=== PATIENT | male | born 1965 | race Caucasian/White ===

== ENCOUNTER 2022-01-18 15:41 | Emergency (ER) | payer OTHER ==
[2022-01-18 15:50] VITALS: BP 166/82; PULSE 60; TEMP 98; BMI 29.1
[2022-01-18] MEDS ORDERED: LIDOCAINE 5% TOPICAL PATCH TP ONE ×2 (16:22→16:24)
[2022-01-18] MEDS ORDERED: CYCLOBENZAPRINE HCL 10 MG TABLET (FP) PO ONE (16:22)
[2022-01-18] MEDS ORDERED: KETOROLAC TROMETHAMINE 30 MG/1 ML VIAL IM ONE (16:22)
[2022-01-18] MEDS ORDERED: LIDOCAINE 5% TOPICAL PATCH ONE (16:26)
[2022-01-18] MEDS ORDERED: CYCLOBENZAPRINE HCL 10 MG TABLET (FP) ONE (16:26)
[2022-01-18] MEDS ORDERED: KETOROLAC TROMETHAMINE 30 MG/1 ML VIAL ONE (16:26)
[2022-01-18] MEDS ORDERED: LIDOCAINE PATCH REMOVAL MC SCH ×2 (22:00)
== END 2022-01-18 18:09 | disposition home or self-care (01) ==
LOC: JERFT 15:41
PROC: 3E0233Z Introduction of Anti-inflammatory into Muscle, Percutaneous Approach (ICD-10-PCS; principal; 2022-01-18)
DX: M54.50 Low back pain, unspecified (principal)
CPT/HCPCS: 99284-25

== ENCOUNTER 2022-01-21 16:45 | Emergency (ER) | payer OTHER ==
[2022-01-21 16:54] VITALS: BP 111/72; PULSE 58; TEMP 97.9; BMI 28.3
[2022-01-21] MEDS ORDERED: KETOROLAC TROMETHAMINE 30 MG/1 ML VIAL IM ONE (19:17)
[2022-01-21] MEDS ORDERED: diazePAM 5 MG TABLET PO ONE (19:17)
[2022-01-21] MEDS ORDERED: LIDOCAINE 5% TOPICAL PATCH TP ONE (19:17)
[2022-01-21] MEDS ORDERED: LIDOCAINE 5% TOPICAL PATCH ONE (19:39)
[2022-01-21] MEDS ORDERED: diazePAM 5 MG TABLET ONE (19:40)
[2022-01-21] MEDS ORDERED: KETOROLAC TROMETHAMINE 30 MG/1 ML VIAL ONE (19:40)
[2022-01-21 20:30] LABS: PH,URINE 5.5 (5.0-8.0); URINE APPEARANCE CLEAR; URINE BILIRUBIN NEGATIVE (NEGATIVE); URINE COLOR YELLOW; URINE GLUCOSE (UA) TRACE (NEGATIVE); URINE KETONE NEGATIVE (NEGATIVE); URINE LEUK ESTERASE NEGATIVE (NEGATIVE); URINE NITRITE NEGATIVE (NEGATIVE); URINE PROTEIN NEGATIVE (NEGATIVE); URINE UROBILINOGEN 0.2 mg/dL (0.2-1.0)
[2022-01-21] MEDS ORDERED: LIDOCAINE PATCH REMOVAL MC SCH (22:00)
== END 2022-01-21 21:11 | disposition home or self-care (01) ==
LOC: JERFT 16:45
PROC: 3E023GC Introduction of Other Therapeutic Substance into Muscle, Percutaneous Approach (ICD-10-PCS; principal; 2022-01-21)
DX: M54.50 Low back pain, unspecified (principal)
CPT/HCPCS: 72100-TC-FY; 81003; 87086; 99284-25

== ENCOUNTER 2022-03-24 04:27 | Inpatient (IN) | payer OTHER ==
[2022-03-24] MEDS ORDERED: DIPHTH,PERTUSS(ACELL),TET 0.5 ML DISP.SYRIN IM ONE ×2 (04:51→04:55)
[2022-03-24] MEDS ORDERED: ACETAMINOPHEN 325 MG TABLET (FP) PO ONE (04:52)
[2022-03-24] MEDS ORDERED: ACETAMINOPHEN 325 MG TABLET (FP) ONE (04:55)
[2022-03-24] MEDS ORDERED: DEXAMETHASONE SOD PHOSPHATE 10 MG/1 ML VIAL ONE (05:29)
[2022-03-24 09:51] LABS: BASO % 0.2 % (0-2.0); EOS % 0.1 % (0-4.5); HEMATOCRIT 42.2 % (35.4-49); HEMOGLOBIN 14.6 GM/dL (11.7-16.9); MCH 32.6 pg (25.7-33.7); MCHC 34.5 g/dl (32.0-35.9); MEAN CELL VOLUME 94.5 fl (80-96); MEAN PLT VOLUME 10.6 fl (7.5-11.1); MONO % 6.6 % (3.8-10.2); NEUT % 79.1 % (42.8-82.8); PLATELET COUNT 173 10^3/uL (134-434); RBC 4.47 M/mm3 (4.00-5.60); RDW 13.5 % (11.9-15.9); WHITE BLOOD COUNT 9.1 K/mm3 (4.0-10.0)
[2022-03-24 10:06] LABS: ALBUMIN 4.1 g/dl (3.4-5.0); BLOOD UREA NITROGEN 13.5 mg/dL (7-18); CALCIUM 8.7 mg/dL (8.5-10.1)
[2022-03-24 10:10] LABS: ACTIVATED PTT 37.2 SECONDS (25.2-36.5); CREATININE 0.7 mg/dL (0.55-1.3); INR 0.99 (0.83-1.09); PROTHROMBIN TIME (PATIENT) 11.4 SEC (9.7-13.0)
[2022-03-24 10:11] LABS: BILIRUBIN,TOTAL 0.3 mg/dL (0.2-1); TOT PROT 7.3 g/dl (6.4-8.2)
[2022-03-24] MEDS ORDERED: ACETAMINOPHEN 1000 MG/100 ML BAG IVPB ONE (11:31)
[2022-03-24] MEDS ORDERED: ACETAMINOPHEN INJECTION 100 ML IVPB ONE (11:33)
[2022-03-24 16:38] VITALS: BMI 30.3
[2022-03-24] MEDS ORDERED: ONDANSETRON 4 MG/2 ML VIAL IVPUSH PRN (16:52)
[2022-03-24] MEDS: morphine SULFATE 4 MG/ML VIAL IVPUSH PRN (17:50)
[2022-03-25 09:08] LABS: HEMATOCRIT 39.4 % (35.4-49); HEMOGLOBIN 13.3 GM/dL (11.7-16.9); MCH 32.1 pg (25.7-33.7); MCHC 33.8 g/dl (32.0-35.9); MEAN CELL VOLUME 94.8 fl (80-96); PLATELET COUNT 158 10^3/uL (134-434); RBC 4.15 M/mm3 (4.00-5.60); RDW 13.4 % (11.9-15.9); WHITE BLOOD COUNT 6.4 K/mm3 (4.0-10.0)
[2022-03-25] MEDS: morphine SULFATE 4 MG/ML VIAL IVPUSH PRN ×2 (09:19→15:09)
[2022-03-25 09:31] LABS: CALCIUM 8.6 mg/dL (8.5-10.1)
[2022-03-25 09:34] LABS: CREATININE 0.7 mg/dL (0.55-1.3)
[2022-03-25] MEDS ORDERED: ENOXAPARIN NA (PORCINE) 40 MG/0.4 ML DISP.SYRIN SQ SCH (10:00)
[2022-03-25] MEDS ORDERED: ACETAMINOPHEN 325 MG TABLET (FP) PO PRN (14:35)
[2022-03-26] MEDS ORDERED: LACTATED RINGERS SOLUTION 1,000 ML/1,000 ML INFUS.BAG IV SCH (08:00)
[2022-03-26 09:43] LABS: HEMATOCRIT 39.9 % (35.4-49); HEMOGLOBIN 13.3 GM/dL (11.7-16.9); MCHC 33.3 g/dl (32.0-35.9); MEAN CELL VOLUME 96.2 fl (80-96); PLATELET COUNT 162 10^3/uL (134-434); RBC 4.15 M/mm3 (4.00-5.60); RDW 13.6 % (11.9-15.9); WHITE BLOOD COUNT 5.5 K/mm3 (4.0-10.0)
[2022-03-26 09:50] LABS: INR 1.07 (0.83-1.09); PROTHROMBIN TIME (PATIENT) 12.3 SEC (9.7-13.0)
[2022-03-26 09:53] LABS: ACTIVATED PTT 37.2 SECONDS (25.2-36.5)
[2022-03-26 10:08] LABS: CALCIUM 8.7 mg/dL (8.5-10.1)
[2022-03-26 10:09] LABS: ALBUMIN 3.6 g/dl (3.4-5.0); MAGNESIUM 2.6 mg/dL (1.8-2.4)
[2022-03-26 10:12] LABS: CREATININE 0.7 mg/dL (0.55-1.3)
[2022-03-26 10:14] LABS: BILIRUBIN,TOTAL 0.7 mg/dL (0.2-1); TOT PROT 6.5 g/dl (6.4-8.2)
[2022-03-26] MEDS ORDERED: MIDAZOLAM HCL 2 MG/2 ML SINGLE DOSE VIAL ONE ×4 (13:18→13:43)
[2022-03-26] MEDS ORDERED: LIDOCAINE HCL/PF 2% SDV 5ML VIAL ONE ×2 (13:18→14:18)
[2022-03-26] MEDS ORDERED: PROPOFOL 20 ML ONE ×2 (13:18)
[2022-03-26] MEDS ORDERED: FENTANYL CITRATE/PF 50 MCG/ML VIAL ONE (13:18)
[2022-03-26] MEDS ORDERED: ROPIVACAINE HCL 0.5% 30ML VIAL ONE (13:40)
[2022-03-26] MEDS ORDERED: ceFAZolin SODIUM 1 GM VIAL IVPB ONE ×2 (14:14)
[2022-03-26] MEDS ORDERED: DEXAMETHASONE SOD PHOSPHATE 4 MG/1 ML VIAL ONE (14:18)
[2022-03-26] MEDS ORDERED: ONDANSETRON 4 MG/2 ML VIAL ONE (14:18)
[2022-03-26] MEDS ORDERED: ceFAZolin SODIUM 1 GM VIAL ONE (14:18)
[2022-03-26] MEDS ORDERED: ONDANSETRON 4 MG/2 ML VIAL IVPUSH PRN ×3 (15:34→15:54)
[2022-03-26] MEDS: LACTATED RINGERS SOLUTION 1,000 ML/1,000 ML INFUS.BAG IV SCH (15:45)
[2022-03-26] MEDS ORDERED: LACTATED RINGERS SOLUTION 1,000 ML IV SCH (15:45)
[2022-03-26] MEDS ORDERED: ACETAMINOPHEN 325 MG TABLET (FP) PO PRN (15:54)
[2022-03-26] MEDS: morphine SULFATE 4 MG/ML VIAL IVPUSH PRN (22:05)
[2022-03-26] MEDS: CEFAZOLIN 2 GM in DEXTROSE 5%-WATER - 100 ML IVPB SCH (22:35)
[2022-03-26] MEDS ORDERED: ceFAZolin 2 GRAM PREMIX BAG IVPB SCH ×2 (23:00)
[2022-03-27] MEDS: LACTATED RINGERS SOLUTION 1,000 ML/1,000 ML INFUS.BAG IV SCH (03:45)
[2022-03-27] MEDS: CEFAZOLIN 2 GM in DEXTROSE 5%-WATER - 100 ML IVPB SCH (06:19)
[2022-03-27 08:43] LABS: HEMATOCRIT 34.8 % (35.4-49); HEMOGLOBIN 12.1 GM/dL (11.7-16.9); MCH 32.6 pg (25.7-33.7); MCHC 34.7 g/dl (32.0-35.9); MEAN CELL VOLUME 93.8 fl (80-96); MEAN PLT VOLUME 10.8 fl (7.5-11.1); PLATELET COUNT 155 10^3/uL (134-434); RBC 3.71 M/mm3 (4.00-5.60); RDW 13.2 % (11.9-15.9); WHITE BLOOD COUNT 10.3 K/mm3 (4.0-10.0)
[2022-03-27 09:11] LABS: CALCIUM 8.7 mg/dL (8.5-10.1)
[2022-03-27 09:12] LABS: BLOOD UREA NITROGEN 13.1 mg/dL (7-18)
[2022-03-27 09:15] LABS: CHOLESTEROL 160 mg/dL (50-200); CREATININE 0.7 mg/dL (0.55-1.3); TRIGLYCERIDES 82 mg/dL (0-150)
[2022-03-27 09:16] LABS: LDL CHOLESTEROL (ONLY SJRH) 94 mg/dL (5-100)
[2022-03-27 09:18] LABS: HDL CHOLESTEROL 51 mg/dL (40-60)
[2022-03-27] MEDS: ASPIRIN 325 MG TABLET PO SCH (09:53)
[2022-03-27] MEDS: morphine SULFATE 4 MG/ML VIAL IVPUSH PRN ×2 (09:54→15:41)
[2022-03-27] MEDS ORDERED: ASPIRIN 325 MG TABLET PO SCH (10:00)
[2022-03-27] MEDS ORDERED: oxyCODONE HCL 5 MG TABLET PO PRN (17:26)
[2022-03-27] MEDS ORDERED: ACETAMINOPHEN 325 MG TABLET (FP) PO PRN (17:27)
[2022-03-27] MEDS: oxyCODONE HCL 5 MG TABLET PO PRN (18:25)
[2022-03-27 21:55] LABS: URINE APPEARANCE CLEAR; URINE BILIRUBIN NEGATIVE (NEGATIVE); URINE COLOR YELLOW; URINE GLUCOSE (UA) 1+ (NEGATIVE); URINE KETONE NEGATIVE (NEGATIVE); URINE LEUK ESTERASE NEGATIVE (NEGATIVE); URINE NITRITE NEGATIVE (NEGATIVE); URINE PROTEIN NEGATIVE (NEGATIVE)
[2022-03-28] MEDS ORDERED: ACETAMINOPHEN 1000 MG/100 ML BAG IVPB ONE (05:48)
[2022-03-28 09:23] LABS: BASO % 0.2 % (0-2.0); EOS % 0.2 % (0-4.5); HEMATOCRIT 36.6 % (35.4-49); HEMOGLOBIN 12.7 GM/dL (11.7-16.9); LYMPH % 22.2 % (8-40); MCH 32.7 pg (25.7-33.7); MCHC 34.8 g/dl (32.0-35.9); MEAN CELL VOLUME 94.1 fl (80-96); MEAN PLT VOLUME 10.6 fl (7.5-11.1); MONO % 8.6 % (3.8-10.2); NEUT % 68.8 % (42.8-82.8); PLATELET COUNT 180 10^3/uL (134-434); RBC 3.89 M/mm3 (4.00-5.60); RDW 13.3 % (11.9-15.9); WHITE BLOOD COUNT 7.5 K/mm3 (4.0-10.0)
[2022-03-28 09:50] LABS: ALBUMIN 3.6 g/dl (3.4-5.0); BLOOD UREA NITROGEN 11.1 mg/dL (7-18); CALCIUM 8.8 mg/dL (8.5-10.1)
[2022-03-28 09:53] LABS: CREATININE 0.8 mg/dL (0.55-1.3)
[2022-03-28 09:54] LABS: TOT PROT 6.7 g/dl (6.4-8.2)
[2022-03-28 09:55] LABS: BILIRUBIN,TOTAL 0.7 mg/dL (0.2-1)
[2022-03-28] MEDS: ASPIRIN 325 MG TABLET PO SCH (10:42)
[2022-03-28] MEDS: DOCUSATE SODIUM 100 MG CAPSULE (FP) PO SCH (10:42)
[2022-03-28] MEDS: oxyCODONE HCL 5 MG TABLET PO PRN ×2 (11:52→20:58)
[2022-03-28] MEDS ORDERED: oxyCODONE HCL 5 MG TABLET PO PRN (17:12)
[2022-03-28] MEDS: ACETAMINOPHEN 325 MG TABLET (FP) PO SCH (17:54)
[2022-03-29] MEDS: ACETAMINOPHEN 325 MG TABLET (FP) PO SCH ×3 (01:00→12:00)
[2022-03-29] MEDS: oxyCODONE HCL 5 MG TABLET PO PRN (03:48)
[2022-03-29] MEDS: DOCUSATE SODIUM 100 MG CAPSULE (FP) PO SCH (12:00)
[2022-03-29] MEDS: ASPIRIN 325 MG TABLET PO SCH (12:00)
[2022-03-29 14:11] VITALS: BP 146/85; PULSE 96; TEMP 98.1
== END 2022-03-29 14:30 | DRG 313 ==
LOC: JER 04:27 → JERBED 09:18 → J5S 16:40
PROVIDERS: ADMIT Internal Medicine
PROC: 0QHG06Z Insertion of Intramedullary Internal Fixation Device into Right Tibia, Open Approach (ICD-10-PCS; principal; 2022-03-26 13:00)
DX: S82.839A Other fracture of upper and lower end of unspecified fibula, initial encounter for closed fracture (principal); E11.9 Type 2 diabetes mellitus without complications; F17.210 Nicotine dependence, cigarettes, uncomplicated; S01.01XA Laceration without foreign body of scalp, initial encounter; S82.209A Unspecified fracture of shaft of unspecified tibia, initial encounter for closed fracture; Y08.89XA Assault by other specified means, initial encounter; Y93.89 Activity, other specified; Y92.89 Other specified places as the place of occurrence of the external cause; Y99.9 Unspecified external cause status; E66.9 Obesity, unspecified; Z68.30 Body mass index [BMI] 30.0-30.9, adult
CPT/HCPCS: 36415; 70450-TC; 71045-TC-FY; 72125-TC; 73590-TC-RT-FY; 73610-TC-RT-FY; 73630-TC-RT-FY; 76000-TC-FY; 80048; 80053; 80061; 80307; 81003; 83036; 83735; 85025; 85027; 85610; 85730; 86850; 86900; 86901; 90715; 93005; 93010; 93306-TC; 94760; 97116-GP; 97162-GP; 99285-25; C9803-CS; U0003; U0005